=== PATIENT | male | born 1975 | race American Indian/Alaskan Native ===

== ENCOUNTER 2017-09-07 22:11 | Emergency (ER) | payer SELFPAY ==
[2017-09-07 22:17] VITALS: BP 143/87
[2017-09-07 23:12] LABS: Hematocrit 41.1 % (35.5-45.6); Hemoglobin 13.3 gm/dl (11.8-15.2); Mean Corpuscular HGB Conc 32 % (32-34); Mean Corpuscular Hemoglobin 29 pg (28-32); Mean Corpuscular Volume 88 fl (84-94); Platelet Count 317 K/mm3 (140-440); Red Blood Count 4.65 M/mm3 (3.65-5.03); White Blood Count 11.5 K/mm3 (4.5-11.0)
[2017-09-07 23:22] LABS: Alanine Aminotransferase 87 units/L (7-56); Albumin 3.8 g/dL (3.9-5); Albumin/Globulin Ratio 1.1 %; Alkaline Phosphatase 44 units/L (35-129); Anion Gap 19 mmol/L; BUN/Creatinine Ratio 16; Blood Urea Nitrogen 13 mg/dL (9-20); Calcium 9.1 mg/dL (8.4-10.2); Carbon Dioxide 23 mmol/L (22-30); Chloride 95.7 mmol/L (98-107); Glucose 145 mg/dL (75-100); Lipase 43 units/L (13-60); Potassium 3.9 mmol/L (3.6-5.0); Sodium 134 mmol/L (137-145); Total Protein 7.4 g/dL (6.3-8.2)
[2017-09-08 01:17] LABS: Basophils % (Manual) 0 % (0.0-1.8); Blastocytes % (Manual) 0 %; Eosinophils % (Manual) 0 % (0.0-4.3)
[2017-09-08 01:29] LABS: Anisocytosis Few
[2017-09-08 01:37] LABS: Giant Platelets Rare
[2017-09-08 01:38] LABS: Diff Status Complete
== END 2017-09-07 23:00 | disposition left against medical advice (07) ==
LOC: ED 22:11
DX: R10.9 Unspecified abdominal pain (principal); Z53.21 Procedure and treatment not carried out due to patient leaving prior to being seen by health care provider
CPT/HCPCS: 36415; 80053; 83690; 85007; 85025